=== PATIENT | female | born 1990 | race Caucasian/White ===

== ENCOUNTER 2018-12-28 14:32 | Emergency (ER) | payer MEDICAID ==
[2018-12-28] MEDS ORDERED: Lidocaine 1% PF 2 ML SDV INJECT ONE (14:33)
--- NOTE | 2018-12-28 14:44 | EDM.PDOC ---
ED HPI GENERAL MEDICAL PROBLEM - General Stated Complaint: POINTER OF R HAND HANG NAIL Time Seen by Provider: 12/28/18 14:44 Source of Information: Reports: Patient History Limitations: Reports: No Limitations - History of Present Illness INITIAL COMMENTS - FREE TEXT/NARRATIVE: 28-year-old female who reports that she bites her nails continually and about 1 week ago she noticed a hangnail and small wound radial aspect of the index finger nail and since that time she has noticed increasing pain and increasing redness and increasing swelling. She reports the pain today is a 7/10. It is sharp and stinging. The redness seems to be progressing up the finger. She has had no fevers or chills. She has no right hand tenderness or wrist tenderness. She reports that she has had these swelling and redness before and has required some drainage at least 1 other time in the past. No nausea or vomiting. She denies any possibility of . She is not breast-feeding. There are no other associated signs or symptoms. There are no other modifying factors. Onset: Other (One week ago) Duration: Getting Worse Location: Reports: Upper Extremity, Right (Right index finger) Quality: Reports: Sharp (And stinging) Severity: Moderate Improves with: Reports: Rest Worsens with: Reports: Other (Palpation), Movement Context: Reports: Other (As above) Associated Symptoms: Reports: No Other Symptoms Treatments [employer]PER[employer] HELPER: Reports: Other (see below) (Nothing) - Related Data Allergies Allergy/AdvReac Type Severity Reaction Status Date / Time amoxicillin Allergy Mild Rash Verified 12/28/18 14:51 Home Meds: Home Meds Cephalexin [Keflex] 750 mg PO TID 7 Days #63 capsule 12/28/18 [Rx] Past Medical History - Past Health History Medical/Surgical History: Denies Medical/Surgical History (No chronic medical problems. 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) Social & Family History - Tobacco Use Smoking Status *Q: Current Every Day Smoker - Alcohol Use Alcohol Use History: No - Living Situation & Occupation Living situation: Reports: , with Spouse Review of Systems - Review of Systems Review Of Systems: See Below Constitutional: Reports: No Symptoms (Last tetanus immunization was approximately one year ago.) Eyes: Reports: No Symptoms Ears: Reports: No Symptoms Nose: Reports: No Symptoms Mouth/Throat: Reports: No Symptoms Respiratory: Reports: No Symptoms Cardiovascular: Reports: No Symptoms GI/Abdominal: Reports: No Symptoms Genitourinary: Reports: No Symptoms Musculoskeletal: Reports: Other ([id number]) Skin: Reports: Erythema (And swelling over right index fingertip) Neurological: Reports: No Symptoms ED EXAM, GENERAL - Physical Exam Exam: See Below Exam Limited By: No Limitations General Appearance: Alert, WD/WN, Anxious, Mild Distress Eye Exam: Bilateral Eye: EOMI, Normal Inspection Ears: Normal External Exam, Hearing Grossly Normal Ear Exam: Bilateral Ear: Auricle Normal Nose: Normal Inspection, Normal Mucosa, No Blood Throat/Mouth: Normal Inspection, Normal Oropharynx, Normal Voice, No Airway Compromise Head: Atraumatic, Normocephalic Neck: Normal Inspection, Supple, Non-Tender, Full Range of Motion Respiratory/Chest: No Respiratory Distress, Lungs Clear, Normal Breath Sounds, No Accessory Muscle Use, Chest Non-Tender Cardiovascular: Normal Peripheral Pulses, Regular Rate, Rhythm, No Murmur, Other (Rate of 117 obtained by the nursing staff was noted but her pulse rate was in the 90s when I examined her.) Peripheral Pulses: 2+: Radial (L), Radial (R) GI/Abdominal: Normal Bowel Sounds, Soft, Non-Tender, No Mass Back Exam: Normal Inspection Extremities: Normal Range of Motion, No Pedal Edema, Normal Capillary Refill, Other (Tenderness with redness and swelling over the radial right index finger tip.) Neurological: Alert, Oriented, CN II-XII Intact, Normal Cognition, No Motor/ Sensory Deficits Skin Exam: Warm, Dry, No Rash, Erythema (With swelling of right index fingertip) , Increased Warmth (Right index fingertip) ED TRAUMA EXTREMITY PROCEDURES - I&D Site: Right index finger Skin Prep: Providone-Iodine (Betadine) Local Anesthesia: Lidocaine: 1% Plain Local Anesthetic Volume: Other (1.5 mLs; good anesthesia and no complications.) Area Incised With: Scissors (Used to open up the paronychia at the nail and break up any loculations) Drainage: Purulent, Small Amount Probed to Break Up Loculations: No Packed With: None Sterile Dressinx4(s) Complications: No Progress/Comments: After informed verbal consent was obtained from the patient, the right index finger area of paronychia was prepped with Betadine and sterilely draped. The area was anesthetized with 1% lidocaine 1.5 mL with good anesthesia and no complications. The paronychia abscess was opened at the nail with the points of iris scissors and loculations are broken up. A scant amount of pus was expressed. The area was then copiously irrigated with Betadine tinged normal saline and an appropriate supportive dressing was applied by the nursing staff. There were no complications. The patient tolerated this procedure well. Course - Vital Signs Last Recorded V/S: Last Vital Signs Temp 36.6 C 12/28/18 14:53 Pulse 117 H 12/28/18 14:53 Resp 18 12/28/18 14:53 BP 119/85 12/28/18 14:53 Pulse Ox 99 12/28/18 14:53 Pulse was 99 at discharge. - Re-Assessments/Exams Free Text/Narrative Re-Assessment/Exam: 12/28/18 15:11: The patient has a paronychia on her right index finger. It has been opened and drained. There was a mild cellulitis associated with it. I am placing the patient on Keflex 750 mg 3 times a day for 7 days. She may take Tylenol and ibuprofen as needed for pain. Precautions and reasons for return to the emergency department were discussed with the patient. Departure - Departure Time of Disposition: 15:15 Disposition: Home, Self-Care 01 Condition: Good (Improved) Clinical Impression: Paronychia of right index finger, Cellulitis of right index finger - Discharge Information Prescriptions: Cephalexin [Keflex] 750 mg PO TID 7 Days #63 capsule Instructions: Cellulitis, Adult, [id number], Incision and Drainage, Care After, Cephalexin tablets or capsules, Paronychia, [id number] Referrals: PCP,Not In Area [Primary Care Provider] - Forms: ED Department Discharge Additional Instructions: You have a paronychia or small abscess along the nail of your right index finger. As you have already surmised, this is due to you biting her nails and an infection starting after this. The abscess was drained and cleaned out. You should clean the area with soap and water and apply a supportive dressing (a Band-Aid suffice) twice daily until it has healed. You may take ibuprofen and Tylenol as needed for pain. Medication as prescribed (Keflex 250 mg). He should take probiotics or eat yogurt daily while you are on the antibiotics. Back to the emergency department for fever, increased redness, increased swelling or any other concerning sign or symptom.
== END 2018-12-28 15:30 | disposition home or self-care (01) ==
LOC: FB.ED 14:32
DX: L03.011 Cellulitis of right finger (principal); F17.200 Nicotine dependence, unspecified, uncomplicated; Z88.1 Allergy status to other antibiotic agents
CPT/HCPCS: 10060; 99283-25; J2001